=== PATIENT | male | born 2000 | race Asian ===

== ENCOUNTER 2018-01-30 19:53 | Emergency (ER) | payer MEDICAID, OTHER, SELFPAY | END 2018-01-30 21:36 | disposition left against medical advice (07) | LOC: M ED 19:53 | DX: S09.90XA Unspecified injury of head, initial encounter (principal); S19.9XXA Unspecified injury of neck, initial encounter; V89.9XXA Person injured in unspecified vehicle accident, initial encounter; Y92.410 Unspecified street and highway as the place of occurrence of the external cause | CPT/HCPCS: 99283 ==

== ENCOUNTER 2018-09-21 09:14 | Emergency (ER) | payer MEDICAID, OTHER ==
[~2018-09-21] VITALS: Ht 165.1 cm; Wt 65.9 kg
[2018-09-21] MEDS ORDERED: ACET1TAB55 PO (09:32)
[2018-09-21 10:11] LABS: HEMATOCRIT 44.9 % (42.0-52.0); MEAN CORPUSCULAR HEMOGLOBIN 30.7 pg (27.0-33.0); MEAN CORPUSCULAR HGB CONC 33.4 g/dl (32.0-36.5); MEAN CORPUSCULAR VOLUME 91.8 fl (80.0-96.0); PLATELET COUNT, AUTOMATED 246 10^3/uL (150-450); RED BLOOD COUNT 4.89 10^6/uL (4.30-6.10); WHITE BLOOD COUNT 4.5 10^3/uL (4.0-10.0)
[2018-09-21] MEDS ORDERED: ACETAMINOPHEN 500 MG TAB PO ONE (10:30)
[2018-09-21] MEDS ORDERED: IBUPROFEN 600 MG TAB PO ONE (10:30)
[2018-09-21] MEDS ORDERED: METOCLOPRAMIDE 10 MG TAB PO ONE (10:30)
[2018-09-21 10:42] LABS: ACETAMINOPHEN LEVEL < 2.0 UG/ML (10.0-30.0); ALBUMIN 4.2 GM/DL (3.2-5.2); ALT/SGPT 20 U/L (12-78); BILIRUBIN,DIRECT 0.2 MG/DL (0.0-0.2); BILIRUBIN,TOTAL 0.9 MG/DL (0.2-1.0); BLOOD UREA NITROGEN 12 MG/DL (7-18); CALCIUM LEVEL 9.1 MG/DL (8.5-10.1); CARBON DIOXIDE LEVEL 29 MEQ/L (21-32); CHLORIDE LEVEL 106 MEQ/L (98-107); ETHYL ALCOHOL (ETHANOL) < 0.003 % (0.000-0.010); GLUCOSE, FASTING 103 MG/DL (70-100); POTASSIUM SERUM 4.3 MEQ/L (3.5-5.1); SALICYLATE LEVEL < 1.7 MG/DL (5.0-30.0); SODIUM LEVEL 138 MEQ/L (136-145); THYROID STIMULATING HORMONE 0.799 uIU/ML (0.463-3.98); TOTAL PROTEIN 7.8 GM/DL (6.4-8.2)
--- NOTE | 2018-09-21 11:04 | REP ---
CT Head without contrast HISTORY: Headache COMPARISON: None There is no intraparenchymal hemorrhage, acute infarct, mass or midline shift. The ventricular system is normal in appearance. There is no extra cerebral collection. There is no fracture. The visualized sinuses are clear. IMPRESSION: There is no intracranial lesion. Electronically Signed by Hong Koroma MD 09/21/2018 10:55 A
[2018-09-21 11:14] LABS: AMPHETAMINES LEVEL URINE NEGATIVE (NEGATIVE); BARBITURATES URINE NEGATIVE (NEGATIVE); BENZODIAZEPINES URINE NEGATIVE (NEGATIVE); CANNABINOIDS URINE NEGATIVE (NEGATIVE); COCAINE METABOLITE URINE NEGATIVE (NEGATIVE); METHADONE URINE NEGATIVE (NEGATIVE); OPIATES URINE NEGATIVE (NEGATIVE); PHENCYCLIDINE URINE NEGATIVE (NEGATIVE)
[2018-09-21] MEDS ORDERED: IBUP-1022 PO (13:03)
[2018-09-21] MEDS ORDERED: REGL10TA6 PO (13:04)
[2018-09-21 13:30] VITALS: BP 114/67
== END 2018-09-21 13:35 | disposition home or self-care (01) ==
LOC: M ED 09:14
DX: F43.0 Acute stress reaction (principal); R51 Headache
CPT/HCPCS: 36415; 70450; 80048; 80076; 80307; 84443; 85027; 99284; G0480

== ENCOUNTER 2018-09-22 15:24 | Emergency (ER) | payer OTHER ==
[~2018-09-22] VITALS: Ht 165.1 cm; Wt 65.9 kg
[~2018-09-22 15:24] MED LIST: ACET1TAB55 PO; IBUP-1022 PO; REGL10TA6 PO
[2018-09-22 15:43] VITALS: BP 119/88
[2018-09-22] MEDS ORDERED: PROMETHAZINE INJ 25 MG/ML VIAL (J2550) IM ONE (16:00)
== END 2018-09-22 17:56 | disposition home or self-care (01) ==
LOC: M ED 15:24
DX: F41.9 Anxiety disorder, unspecified (principal)